=== PATIENT | male | born 1965 | race Caucasian/White ===

== ENCOUNTER 2019-01-03 08:59 | Day surgery (SDC) | payer OTHER ==
[2019-01-03] MEDS ORDERED: FENTAnyl 50 MCG/ML VIAL (11:03)
[2019-01-03] MEDS ORDERED: MIDAZOLAM 1 MG/ML 2 ML INJ (11:03)
== END 2019-01-03 11:26 | disposition home or self-care (01) ==
LOC: GIL 08:59
DX: Z12.11 Encounter for screening for malignant neoplasm of colon (principal); K57.30 Diverticulosis of large intestine without perforation or abscess without bleeding; N40.0 Benign prostatic hyperplasia without lower urinary tract symptoms
CPT/HCPCS: 45378